=== PATIENT | male | born 1950 | race Caucasian/White ===

== ENCOUNTER 2019-12-28 09:49 | Outpatient (CLI) | payer MEDICARE, SELFPAY ==
--- NOTE | 2019-12-28 10:00 | CT_ITS ---
WS: [id number] CT HEAD NONCONTRAST HISTORY: suspicious skin lesion TECHNIQUE: Contiguous axial imaging performed through the brain in 2.5 mm imaging. Bone and soft tiss ue windows. All CT scans at [facility] use at least one of these dose optimization techniq ues: automated exposure control; mA and/or kV adjustment per patient size (includes targeted exams wh ere dose is matched to clinical indication); or iterative reconstruction. DLP: 925.91 mGycm COMPARISON: None available. No acute intracranial hemorrhage, midline shift or mass effect. Mild atrophy and mild chronic ischemic disease. No prior infarcts. Ventricles: Normal size with no hydrocephalus. Very mild calcification in the intracranial carotid arteries. Paranasal sinuses: As visualized are clear. Mastoid air cells: Well pneumatized. Calvarium and scalp: No fracture. There is a large lobulated soft tissue mass involving the scalp of the LEFT frontal region. Mass extends over a width of 4.3 cm and a depth of 1.4 cm. Mass extends to t he calvarium but does not appear to be invading the frontal bone. CT/CT head wo con* [id number] IMPRESSION: 1. No intracranial abnormality associated with the scalp abnormality. 2. Large lobulated scalp mass measuring 4.3 x 1.4 cm in the LEFT frontal regio n. No extension into the frontal bone.
== END 2019-12-28 09:50 | disposition home or self-care (01) ==
LOC: RADWPI 09:55
PROVIDERS: PCP Emergency Medicine; Visit Provider Emergency Medicine
DX: L98.9 Disorder of the skin and subcutaneous tissue, unspecified (principal); R22.0 Localized swelling, mass and lump, head
CPT/HCPCS: 70450